=== PATIENT | female | born 1980 | race Caucasian/White ===

== ENCOUNTER 2021-01-20 06:57 | Outpatient (CLI) | payer OTHER, SELFPAY ==
--- NOTE | ~2021-01-20 | XR_ITS ---
EXAMINATION: XR thoracic spine 3V DATE: 01/20/2021 07:35 INDICATION: Dorsalgia, unspecified. TECHNIQUE: 3 views of thoracic spine were obtained. COMPARISON: None. FINDINGS: There is 7 degrees levocurvature of thoracic spine. Vertebral body heights and intervertebr al disc heights are normal. There are endplate osteophytes at most levels. IMPRESSION: 1. Mild thoracic spondylosis. Reviewed, dictated and finalized at location A.
--- NOTE | ~2021-01-20 | XR_ITS ---
EXAMINATION: XR shoulder LT min 2V DATE: 01/20/2021 07:35 INDICATION: Left shoulder pain. TECHNIQUE: 4 views of left shoulder were obtained. COMPARISON: None. FINDINGS: Bone alignment is normal. No fracture. Joint spaces are well maintained. IMPRESSION: 1. Normal left shoulder. Reviewed, dictated and finalized at location A. IMPRESSION: 1. Normal left shoulder.
--- NOTE | ~2021-01-20 | XR_ITS ---
EXAMINATION: XR lumbar spine 2-3V DATE: 01/20/2021 07:35 INDICATION: Dorsalgia, unspecified. TECHNIQUE: 3 views of lumbar spine were obtained. COMPARISON: None. FINDINGS: There is 3 degrees dextrocurvature of lumbar spine. Vertebral body heights and intervertebr al disc heights are normal. There are endplate osteophytes at multiple levels. The facet joints are u nremarkable. IMPRESSION: 1. Mild lumbar spondylosis. Reviewed, dictated and finalized at location A. IMPRESSION: 1. Mild lumbar spondylosis.
== END 2021-01-20 06:58 | disposition home or self-care (01) ==
PROVIDERS: PCP Family Medicine; Visit Provider Nurse Practitioner Family
DX: M25.512 Pain in left shoulder (principal); M47.896 Other spondylosis, lumbar region; M47.894 Other spondylosis, thoracic region
CPT/HCPCS: 72072; 72100; 73030

== ENCOUNTER 2022-02-06 15:12 | Emergency (ER) | payer BC, SELFPAY ==
[2022-02-06 15:23] VITALS: BP 179/100; PULSE 114; RESP 20; TEMP 36.6; O2SAT 98
[2022-02-06 15:53] LABS: Appearance Urine Clear (Clear); Bilirubin Urine 1+ (Negative); Blood Urine Negative (Negative); Color Urine Amber (Yellow); Glucose Urine UA Negative (Negative); Ketones Urine Trace mg/dL (Negative); Leukocyte Esterase Ur Negative LEU/UL (Negative); Nitrate Urine Negative (Negative); Protein Urine 1+ mg/dL (Negative); Specific Grav Ur >= 1.030 (1.001-1.035); Urobilinogen Urine 0.2 mg/dL (<2.0); pH Urine 5.5 (5.0-9.0)
[2022-02-06 15:54] LABS: Add Urine Microscopic? YES; Hyaline Casts Urine 15-19 /lpf; Mucus Urine Heavy /lpf; Squamous Epithelial Cell Urine Many /hpf (Few); Uric Acid Crystals Urine Present /hpf
[2022-02-06 17:17] VITALS: BP 142/88; PULSE 82; RESP 16; TEMP 37; O2SAT 100
--- NOTE | 2022-02-06 18:08 | ED.GENADULT ---
HPI - General Adult General Chief complaint: Urogenital-Female Stated complaint: herpes outbreak, right back pain Time Seen by Provider: 02/06/22 17:15 Source: patient Mode of arrival: ambulatory Limitations: no limitations History of Present Illness HPI narrative: Patient is a 41-year-old female who presents the ED with report of right mid back pain. Patient reports the pain has been present for months and months. She did attempt to see her primary care doctor about this pain but had a bad experience and has not returned. She states the pain radiates around her right lateral ribs under her right breast. She has tried taking Tylenol for this but denies any relief of the pain. She is on Eliquis due to history of bilateral PEs in 2018 and therefore not able to take anti-inflammatories. Patient states this pain does not feel similar to her previous PEs, but she did not experience chest pain or shortness of breath at that time either. Denies any direct injury or fall. She states the pain is significantly worse with movement and applying pressure on that side. She notes she has to sleep on her left side. She denies any difficulty breathing, pain with inspiration, or chest pain. Denies cough, recent cold symptoms, hemoptysis, BLE pain or edema. Denies urinary symptoms. She does note she is currently having an outbreak of her known HSV and would like valacyclovir. Patient has not been having any fever, chills, nausea, vomiting, abdominal pain. Related Data Home Medications Medication Instructions Recorded Confirmed amlodipine 5 mg tablet 5 mg PO DAILY 01/17/21 01/20/21 apixaban 5 mg tablet 5 mg PO BID 01/17/21 01/20/21 clonazepam 1 mg tablet 1 mg PO DAILY 01/17/21 01/20/21 lisdexamfetamine 70 mg capsule 70 mg PO DAILY 01/17/21 01/20/21 sertraline 100 mg tablet 100 mg PO DAILY 01/17/21 01/20/21 zolpidem 10 mg tablet 10 mg PO QHS PRN 01/17/21 01/20/21 Allergies Allergy/AdvReac Type Severity Reaction Status Date / Time No Known Allergies Allergy Mild Verified 01/17/21 09:14 Review of Systems Review of Systems: CONSTITUTIONAL: Denies fever, chills, or sweats. ENT: Denies rhinorrhea, congestion. CARDIOVASCULAR: Denies chest pain, palpitations, or BLE edema. RESPIRATORY: Denies cough, pain with inspiration, hemoptysis, dyspnea. GASTROINTESTINAL: Denies abdominal pain, nausea, vomiting, or diarrhea. GENITOURINARY: Denies dysuria or hematuria. SKIN: Reports HSV outbreak. MUSCULOSKELETAL: Reports R mid back pain, radiating around to R ribs. Denies BLE pain. NEUROLOGIC: Denies headache, numbness, or weakness. All systems reviewed & are unremarkable except as noted in HPI and below [facility] Past Medical History Medical History (Updated 02/07/22 @ 04:30 by Nahomy Marie PA-C) Anxiety Depression Morbid (severe) obesity due to excess calories Surgical History Surgical History (Updated 02/06/22 @ 18:11 by Nahomy Marie PA-C) No pertinent past surgical history Family History Family History (Updated 01/17/21 @ 09:18 by Dayan Dutton, [facility]) Father Hypertension Cerebrovascular accident Family history of diabetes mellitus in first degree relative Depression Mother Hypertension Depression Heart disease Grandparent Family history of malignant neoplasm Family history of pancreatic cancer Acute myocardial infarction Sibling Depression Social History Social History Smoking status: Never smoker Alcohol intake: current Substance use: current Substance use type: marijuana Additional occupation/education comments: mortgage Exam Narrative: GENERAL: Well appearing, morbidly obese, non-toxic, in no acute distress. HEAD: Normocephalic, atraumatic. NECK: Supple. No adenopathy, no masses. RESPIRATORY: Airway patent, respirations nonlabored. Clear to auscultation bilaterally, no rales, rhonchi, wheezing. CARDIOVASCULAR: Regular rate a
[2022-02-06 18:25] LABS: Basophils Percent Auto 0.8 % (0.2-1.2); Eosinophils Absolute Auto 0.2 K/mm3 (0-0.3); Eosinophils Percent Auto 3.2 % (0-4.4); Hematocrit 43.9 % (37.0-47.0); Hemoglobin 14.9 g/dL (12.0-15.0); Immature Granulocyte Absolute 0.01 K/mm3 (0.00-0.031); Immature Granulocyte Percent A 0.2 % (0-0.5); Lymphocytes Absolute Auto 1.32 K/mm3 (0.9-3.2); Lymphocytes Percent Auto 26.4 % (18.3-44.2); Mean Corpuscular HGB Conc 33.9 g/dl (32-36); Mean Corpuscular Volume 85.4 fl (80-100); Mean Platelet Volume 8.9 fl (7.4-10.4); Monocytes Absolute Auto 0.3 K/mm3 (0.1-0.6); Monocytes Percent Auto 6.8 % (2.6-8.5); Neutrophils Absolute Auto 3.1 K/mm3 (1.3-6.7); Neutrophils Percent Auto 62.6 % (45.5-73.1); Platelet Count Result 207 k/mm3 (150-375); Red Blood Count 5.14 M/mm3 (4.2-5.4); Red Cell Distribution Width 13.2 % (11.5-14.5)
[2022-02-06 18:37] LABS: Alanine Aminotransferase 58 U/L (6-35); Albumin Level 4.7 g/dL (3.5-5.1); Alkaline Phosphatase 74 U/L (38-126); Anion Gap 8 mmol/L (8-16); Aspartate Amino Transferase 55 U/L (14-36); Bilirubin,Total 0.8 mg/dL (0.2-1.3); Blood Urea Nitrogen 18 mg/dL (7-17); Calcium 8.9 mg/dL (8.4-10.2); Carbon Dioxide 25 mmol/L (22-30); Chloride 106 mmol/L (98-107); Estimated CRCL calculation 127 ml/min; Estimated Glomerular Filt Rate > 60; Glucose 103 mg/dL (65-110); Potassium 3.4 mmol/L (3.4-5.0); Sodium 139 mmol/L (137-145)
[2022-02-06 22:04] LABS: D Dimer < 0.27 ug/mL (<0.48)
[2022-02-06 22:25] VITALS: BP 138/80; PULSE 88; RESP 18; TEMP 37.1; O2SAT 98
== END 2022-02-06 22:27 | disposition home or self-care (01) ==
PROVIDERS: Emergency Medicine; Physician Assistant; Emergency Provider Emergency Medicine
DX: M54.9 Dorsalgia, unspecified (principal); B00.9 Herpesviral infection, unspecified; R74.01 Elevation of levels of liver transaminase levels
CPT/HCPCS: 36415; 80053; 81001; 81025; 85025; 85380; 87086; 99283

== ENCOUNTER 2023-09-09 15:50 | Emergency (ER) | payer OTHER, SELFPAY ==
--- NOTE | ~2023-09-09 | XR_ITS ---
EXAMINATION: XR chest 2V DATE: 09/09/2023 16:05 INDICATION: Dyspnea and pain with inspiration TECHNIQUE: PA and lateral views of the chest were obtained. COMPARISON: Chest radiograph dated 12/26/2004 FINDINGS: The lungs are clear with no focal airspace opacities, pulmonary edema, pleural effusion or pneumothor ax. The cardiomediastinal silhouette is normal. Mild thoracic spondylosis. IMPRESSION: 1. No acute cardiopulmonary disease. Reviewed, dictated and finalized at location A. CAR RENOVATOR
--- NOTE | ~2023-09-09 | CT_ITS ---
EXAMINATION: CTA chest PE abdomen pel DATE: 09/09/2023 19:13 SUPERVISOR IN CIRCUIT TESTING INDICATION: Left rib and chest pain. Pleuritic pain. History of PE. Left upper abdomen pain. TECHNIQUE: Computed tomographic angiography (CTA) of the chest, abdomen, and pelvis was performed wit hout and with 100 mL Omnipaque-[address] angiography chest performed due to poor contrast opacification the pulmonary arteries. The dose-length product was 3053.62 mGy-cm. Maxi mum intensity projection 3D-reconstructions of the aorta and other arteries were constructed by the t echnologist on a separate workstation. Automated exposure control and iterative reconstruction techni que were employed. COMPARISON: CT abdomen dated 01/17/2006. FINDINGS: CHEST CTA: Study is nondiagnostic for pulmonary embolism. Heart size normal. No significant pleural or pericardi al effusion. No evidence for aortic aneurysm or dissection. No thoracic lymphadenopathy. No endobronc hial lesions. No pneumothorax. No acute osseous abnormality. Mild thoracic spondylosis. ABDOMEN AND PELVIS CTA: Fatty infiltration of the liver. The spleen, pancreas, adrenal glands and kidneys are unremarkable. N onobstructive bowel gas pattern. No significant vascular abnormality. No lymphadenopathy. No free air or free fluid. IMPRESSION: 1. No acute cardiopulmonary disease. Study nondiagnostic for evaluation of pulmonary embolism despite repeat attempt at contrast administration. 2: No acute abnormality of the abdomen or pelvis. Reviewed, dictated and finalized at location A. RVISOR IN CIRCUIT TESTING IMPRESSION: 1. No acute cardiopulmonary disease. Study nondiagnostic for evaluation of pulm onary embolism despite repeat attempt at contrast administration. 2: No acute abnormality of the abdomen or pelvis.
[2023-09-09 15:52] VITALS: BP 201/98; PULSE 116; RESP 20; TEMP 35.7; O2SAT 97
--- NOTE | 2023-09-09 15:55 | ECG_ITS ---
Measurements Intervals [place] Rate: 105 P: 25 VA: 152 QRS: -18 QRSD: 80 T: 18 QT: 309 QTc: 410 Interpretive Statements SINUS TACHYCARDIA LOW QRS VOLTAGE IN PRECORDIAL LEADS [QRS DEFLECTION < 1.0 mV IN CHEST LEADS] POSSIBLE ANTERIOR MYOCARDIAL INFARCTION , PROBABLY OLD [30 ms Q WAVE IN V3/V4, OR R < 0.2 mV IN V4] ABNORMAL ECG NO PREVIOUS ECG AVAILABLE FOR COMPARISON Electronically Signed On 09-09-2023 17:30:32 [employer]ER by Johnny Sanchez M.D.
--- NOTE | 2023-09-09 16:27 | ED.GENADULT ---
HPI - General Adult General Chief complaint: Unspecified <Nahomy Lara PA-C - Last Filed: 09/09/23 16:32> Stated complaint: left rib/back pain <Nahomy Lara PA-C - Last Filed: 09/09/23 16:32> Time Seen by Provider: 09/09/23 21:59 <MONICO Dean Last Filed: 09/09/23 16:32> Source: patient <MONICO Dean Last Filed: 09/09/23 16:32> Mode of arrival: ambulatory <MONICO Dean Last Filed: 09/09/23 16:32> Limitations: no limitations <MONICO Dean Last Filed: 09/09/23 16:32> History of Present Illness HPI narrative: Patient is a 43-year-old female who presents the ED with report of left rib/abdominal pain. Patient reports having intermittent pain over the last 1 week. She states pain became more severe and constant last night into today. Pain worse with deep breathing, coughing, laughing. Pain does radiate around to her left mid back. Denies radiation into the chest. Patient does report she has been feeling more short of breath than usual over the last few days. She does have history of PE and reports noncompliance with her Eliquis. Patient tried taking ibuprofen and antacids for her discomfort without improvement. Denies recent injury or trauma. Denies recent cough or cold symptoms. <MONICO Dean Last Filed: 09/09/23 16:32> Related Data Home medications: Home Medications Medication Instructions Recorded Confirmed amlodipine 5 mg tablet 5 mg PO DAILY 01/17/21 01/20/21 apixaban 5 mg tablet (Eliquis) 5 mg PO BID 01/17/21 01/20/21 clonazepam 1 mg tablet (Klonopin) 1 mg PO DAILY 01/17/21 01/20/21 lisdexamfetamine 70 mg capsule 70 mg PO DAILY 01/17/21 01/20/21 (Vyvanse) sertraline 100 mg tablet (Zoloft) 100 mg PO DAILY 01/17/21 01/20/21 zolpidem 10 mg tablet (Ambien) 10 mg PO QHS PRN 01/17/21 01/20/21 <Nahomy Lara PA-C - Last Filed: 09/09/23 16:32> Allergies/adverse reactions: Allergies Allergy/AdvReac Type Severity Reaction Status Date / Time No Known Allergies Allergy Mild Verified 01/17/21 09:14 <Nahomy Lara PA-C - Last Filed: 09/09/23 16:32> Review of Systems Review of Systems: CONSTITUTIONAL: Denies fever, chills, or sweats. ENT: Denies rhinorrhea, congestion, sore throat. CARDIOVASCULAR: Denies chest pain, palpitations, or edema. RESPIRATORY: See HPI. GASTROINTESTINAL: See HPI. GENITOURINARY: Denies dysuria or hematuria. MUSCULOSKELETAL: See HPI. <Nahomy Lara PA-C - Last Filed: 09/09/23 16:32> All systems reviewed & are unremarkable except as noted in HPI and below <Nahomy Lara PA-C - Last Filed: 09/09/23 16:32> [facility] Past Medical History Medical History: Medical History Anxiety Depression Morbid (severe) obesity due to excess calories Pulmonary embolism <Nahomy Lara PA-C - Last Filed: 09/09/23 16:32> Surgical History Surgical History: Surgical History No pertinent past surgical history <Nahomy Lara PA-C - Last Filed: 09/09/23 16:32> Family History Family History: Family History Father Hypertension Cerebrovascular accident Family history of diabetes mellitus in first degree relative Depression Mother Hypertension Depression Heart disease Grandparent Family history of malignant neoplasm Family history of pancreatic cancer Acute myocardial infarction Sibling Depression <Nahomy Lara PA-C - Last Filed: 09/09/23 16:32> Social History Social History: Social History Smoking status: Never smoker Alcohol intake: current Substance use: current Substance use type: marijuana Ronna
[2023-09-09 16:39] LABS: Basophils Percent Auto 0.6 % (0.2-1.2); Eosinophils Absolute Auto 0.2 K/mm3 (0-0.3); Eosinophils Percent Auto 3.4 % (0-4.4); Hematocrit 42.2 % (37.0-47.0); Hemoglobin 13.9 g/dL (12.0-15.0); Immature Granulocyte Absolute 0.01 K/mm3 (0.00-0.031); Immature Granulocyte Percent A 0.2 % (0-0.5); Lymphocytes Absolute Auto 1.79 K/mm3 (0.9-3.2); Lymphocytes Percent Auto 35.5 % (18.3-44.2); Mean Corpuscular HGB Conc 32.9 g/dl (32-36); Mean Corpuscular Hemoglobin 28.7 pg (26-34); Mean Corpuscular Volume 87.2 fl (80-100); Mean Platelet Volume 9.1 fl (7.4-10.4); Monocytes Absolute Auto 0.3 K/mm3 (0.1-0.6); Monocytes Percent Auto 6.3 % (2.6-8.5); Neutrophils Absolute Auto 2.7 K/mm3 (1.3-6.7); Platelet Count Result 205 k/mm3 (150-375); Red Blood Count 4.84 M/mm3 (4.2-5.4)
[2023-09-09 16:44] LABS: Alanine Aminotransferase 44 U/L (6-35); Albumin Level 4.2 g/dL (3.5-5.1); Alkaline Phosphatase 70 U/L (38-126); Anion Gap 10 mmol/L (8-16); Aspartate Amino Transferase 32 U/L (14-36); Bilirubin,Total 0.4 mg/dL (0.2-1.3); Blood Urea Nitrogen 19 mg/dL (7-17); Calcium 9.5 mg/dL (8.4-10.2); Carbon Dioxide 20 mmol/L (22-30); Chloride 109 mmol/L (98-107); Estimated CRCL calculation 193 ml/min; Estimated Glomerular Filt Rate > 60; Glucose 97 mg/dL (65-110); Potassium 4.1 mmol/L (3.4-5.0); Sodium 139 mmol/L (137-145)
[2023-09-09 17:11] LABS: NT Pro B Type Natriuretic Pept 106 pg/mL (19.9-100); Troponin I < 0.012 ng/mL (0.000-0.034)
[2023-09-09 18:29] VITALS: BP 170/103; PULSE 81; RESP 14; TEMP 36.6; O2SAT 99
[2023-09-09 22:08] VITALS: BP 152/98; O2SAT 99
[2023-09-09 22:09] VITALS: O2SAT 100
[2023-09-09 22:15] VITALS: O2SAT 98
[2023-09-09 22:16] VITALS: BP 157/96; PULSE 83; RESP 16; O2SAT 99
== END 2023-09-09 23:06 | disposition home or self-care (01) ==
PROVIDERS: Emergency Medicine; Physician Assistant; Emergency Provider Emergency Medicine
DX: R10.12 Left upper quadrant pain (principal); Z86.711 Personal history of pulmonary embolism; E66.01 Morbid (severe) obesity due to excess calories; Z68.45 Body mass index [BMI] 70 or greater, adult
CPT/HCPCS: 36415; 71046; 71275; 74177; 80053; 83880; 84484; 85025; 93005; 99284; Q9967

== ENCOUNTER 2024-03-18 08:29 | Emergency (ER) | payer OTHER, SELFPAY ==
--- NOTE | ~2024-03-18 | XR_ITS ---
EXAMINATION: XR ankle LT min 3V DATE: 03/18/2024 08:52 INDICATION: Twisting left ankle injury one day prior. TECHNIQUE: Anteroposterior, oblique, mortise, and lateral views of the left ankle were obtained. COMPARISON: None. FINDINGS: Bone alignment is normal. No acute fracture. Small corticated heterotopic ossicles near the tips of t he medial and lateral malleoli consistent with sequela of chronic medial and lateral ankle sprains. A dditional corticated ossicles and more likely representing degenerative loose osteochondral bodies th e anterior recess of the ankle joint and dorsal aspect of the talonavicular joint. Mild osteoarthriti s at the talonavicular and a few of the tarsal metatarsal joints. Diffuse soft tissue swelling with m ild subarticular edema about the anterior, medial and lateral aspects of the ankle. IMPRESSION: 1. Stigmata of chronic medial and lateral ankle sprains. No acute osseous abnormality. 2. 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 Reviewed, dictated and finalized at location B. IMPRESSION: 1. Stigmata of chronic medial and lateral ankle sprains. No acute osseous abnor mality. 2. 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
[2024-03-18 08:40] VITALS: BP 154/110; PULSE 93; RESP 20; TEMP 37.1; O2SAT 98
--- NOTE | 2024-03-18 08:59 | ED.LOWEXIN ---
HPI - Extremity Injury (Lower) General Chief Complaint: Extremity Injury, Lower Stated Complaint: Left Ankle Injury Time Seen by Provider: 03/18/24 08:45 Source: patient and RN notes reviewed Mode of arrival: ambulatory Limitations: no limitations History of Present Illness HPI Narrative: Patient presents today complaining of left ankle pain. Yesterday she tripped on a sidewalk, twisting her ankle and fell. Denies injury to any other part of her body. Denies numbness or tingling. Currently rates her pain 6/10. She has elevated and iced her ankle and taken some ibuprofen with relief. Pain increases with movement. Related Data Home Medications Medication Instructions Recorded Confirmed apixaban 5 mg tablet (Eliquis) 5 mg PO BID 01/17/21 03/18/24 Allergies Allergy/AdvReac Type Severity Reaction Status Date / Time No Known Allergies Allergy Mild Verified 03/18/24 08:34 Review of Systems Review of Systems: CONSTITUTIONAL: Denies body aches, fever, chills, or sweats. EYES: Denies visual changes, redness, or discharge. ENT: Denies rhinorrhea, congestion, sore throat, or otalgia. CARDIOVASCULAR: Denies chest pain, palpitations, or edema. RESPIRATORY: Denies cough or dyspnea. GASTROINTESTINAL: Denies abdominal pain, nausea, vomiting, or diarrhea. GENITOURINARY: Denies dysuria or hematuria. SKIN: Denies rash, itching, or wounds. MUSCULOSKELETAL: Denies back pain, or myalgia.+ left ankle pain NEUROLOGIC: Denies headache, numbness, tingling, or weakness. PSYCH: Denies depression or anxiety. [facility] Past Medical History Medical History ADHD Anxiety Depression Morbid (severe) obesity due to excess calories Pulmonary embolism Surgical History Surgical History No pertinent past surgical history Family History Family History Father Hypertension Cerebrovascular accident Family history of diabetes mellitus in first degree relative Depression Mother Hypertension Depression Heart disease Grandparent Family history of malignant neoplasm Family history of pancreatic cancer Acute myocardial infarction Sibling Depression Social History Social History Smoking status: Never smoker Alcohol intake: current Substance use: current Substance use type: marijuana Lack of Transportation: No Lack of Food: Sometimes True Current Housing: I Have Housing Concerned About Future Housing: No Difficulty Paying Gas/Electric Bills: No Difficulty Paying for Meds: No Currently Unemployed: No Education: Associate Degree Difficulty w/ Childcare or Family Care: No Living arrangements: alone Occupation/Education: occupation Additional occupation/education comments: mortgage Gender identity (if verbalized by the patient): Female Agree to blood products: Yes Comments At time of signature, I have reviewed and agree with nursing past medical, surgical, social and family history unless otherwise noted. Please see nursing chart for further information. There is no relevant family history pertinent to the presenting complaint Exam Narrative: GENERAL: Well-appearing, well-nourished, and in no acute distress. HEAD: Normocephalic, atraumatic. EYES: EOMI. No redness or drainage. Conjunctivae normal. ENT: Mucous membranes pink and moist. NECK: Normal AROM. CHEST: No respiratory distress. EXTREMITIES: Left ankle: Tenderness and moderate edema to the lateral ankle. No tenderness or edema medially or anteriorly. Distal sensation intact. Capillary refill. Pedal pulse normal. Full range of motion of the toes. Full P ROM of the ankle with increased pain in all directions. SKIN: Warm, dry, no rash. Capillary refill normal. No
== END 2024-03-18 09:18 | disposition home or self-care (01) ==
PROVIDERS: Emergency Provider Nurse Practitioner; PCP Nurse Practitioner Adult Health
DX: S93.402A Sprain of unspecified ligament of left ankle, initial encounter (principal); W01.0XXA Fall on same level from slipping, tripping and stumbling without subsequent striking against object, initial encounter; E66.01 Morbid (severe) obesity due to excess calories; Z68.45 Body mass index [BMI] 70 or greater, adult; Z86.711 Personal history of pulmonary embolism; Z79.01 Long term (current) use of anticoagulants
CPT/HCPCS: 73610; 99213; G0463

== ENCOUNTER 2024-07-13 07:38 | Outpatient (CLI) | payer OTHER, SELFPAY ==
--- NOTE | ~2024-07-13 | MM_ITS ---
EXAMINATION: MM screening david BI w constantine HISTORY: Screening TECHNIQUE: Craniocaudal and mediolateral oblique 3-D tomosynthesis images were obtained and synthetic 2-D images were generated. CAD analysis was submitted and interpreted. COMPARISON: No prior studies for comparison. BREAST PARENCHYMAL COMPOSITION: Not Dense: The breasts are almost entirely fatty. FINDINGS: There is no evidence of suspicious mass, calcification, or architectural distortion to sugg est malignancy in either breast. There has been no suspicious interval change. IMPRESSION: 1. No mammographic evidence of malignancy. 2. Recommend routine screening mammography in one year. BI-RADS Category 1: Negative Reviewed, dictated and finalized at location B.
== END 2024-07-13 07:39 | disposition home or self-care (01) ==
LOC: ANHIMG 07:40
PROVIDERS: PCP Nurse Practitioner Adult Health; Visit Provider Nurse Practitioner Adult Health
DX: Z12.31 Encounter for screening mammogram for malignant neoplasm of breast (principal)
CPT/HCPCS: 77063; 77067

== ENCOUNTER 2025-02-16 09:39 | Outpatient (CLI) | payer OTHER, SELFPAY ==
--- NOTE | ~2025-02-16 | CT_ITS ---
Non-contrast CT scan of the Abdomen and Pelvis Clinical indication: Abdominal pain Technique: 2.5 mm axial scans were obtained through the abdomen and pelvis without intravenous or or al contrast. Dose reduction technique was used on this scan by utilizing automated exposure control a nd iterative reconstruction technique. The dose-length product (DLP) was 1196.57 mGy-cm. COMPARISON: 09/09/2023 Findings: Images through the lung bases reveal no abnormalities. There is no evidence of renal or ureteral calculi. The kidneys and the ureters are nondilated. The liver, spleen, pancreas, gallbladder, and adrenals appear normal. There is no aortic aneurysm. There is no evidence of bowel obstruction. Images through the pelvis were performed. There is no evidence of ascites or lymphadenopathy. Urinary bladder unremarkable. No pelvic mass seen. No ascites. Impression: No significant abnormality seen. Reviewed, dictated and finalized at [facility]. Impression: No significant abnormality seen.
== END 2025-02-16 09:40 | disposition home or self-care (01) ==
LOC: MICIMG 09:41
PROVIDERS: PCP Nurse Practitioner Adult Health; Visit Provider Nurse Practitioner Adult Health
DX: R10.9 Unspecified abdominal pain (principal); Z80.51 Family history of malignant neoplasm of kidney
CPT/HCPCS: 74176

== ENCOUNTER 2025-06-22 23:21 | Emergency (ER) | payer OTHER, SELFPAY ==
--- OUTSIDE RECORDS SUMMARY | 2000-06-14 05:00 | XMS_ITS | Continuity of Care Document ---
Author Organization [facility] Address [address] [place] [address] Phone Care Team Providers Care Quality Analyst/Technical Writer Name Role Phone Salinas Solo DO Unavailable Unavailable Advance Directives Directive Yes / No Effective Date File Name No Information Encounters Encounter Description Practice Location Reason(s) For Visit Diagnoses Date Provider Providers Copied on Encounter [facility], [address], [place], [place], [id number], tel:[phone] [facility] No Information Germania Cruz. [address] [place], [address], [place]. tel: [phone] Family History Family Member Type Diagnosis Age At Onset No Information Payers Payer name Insurance type Covered democrat ID Authoriza tion(s) No Information Social History Type Description Quantity Date Captured Comments Sex Female Smoking Status No Information Chief Complaint And Reason For Visit No Information Reason For Referral Reason For Referral No Information History Of Present Illness Encounter Date Complaint History Of Prese nt Illness No Information Functional Status Date Functional Assessmen t No Information Instructions Date Instruction Additional Infor mation No Information Assessments Type Assessment Date No Information Patient Care Teams Name Effective Dates (start - stop) Status Members No Information
--- OUTSIDE RECORDS SUMMARY | 2016-06-13 03:05 | XMS_ITS | Continuity of Care Document ---
Author Organization [facility] Address [address] [place] [address] [address] [place] [address] Phone Care Team Providers Care Director Of Group Sales Name Role Phone Eleazar Campbell MD Unavailable Unavailable Allergies, Adverse Reactions, Alerts Substance Reaction Status Criticality TRAZODONE HCL Active No Information Medications Medication Instructions Dosage Effective Dates (start - stop) Status Comments Vyvanse 10 mg capsule - Active Ambien 5 mg tablet take 2 tablet by ora l route every day at bedtime 10 MG - Active hydrocodone-acetamino phen BUCCAL ADH. PATCH - Active Plaquenil 200 mg tablet take 1 tablet by oral route every day 200 MG - Active prednisone BUCCAL ADH. PATCH - Active tramadol ER 300 mg capsule 24 hr,extended release take 1 capsule by oral route every day 300 MG - Active Zoloft 20 mg/mL oral concentrate take 2.5 milliliter by oral route every day and mix with 4 oz. (1/2 cup) of water, martha eric, lemon/[place] soda, lemonade or orange juice ONLY 50 MG - Active Procedures Procedure Date OFFICE/OUTPATIENT VISIT, [facility] VISUAL FIELD EXAMINATION(S) REFRACTION Advance Directives Directive Yes / No Effective Date File Name No Information Encounters Encounter Description Practice Location Reason(s) For Visit Diagnoses Date Provider Providers Copied on Encounter OFFICE/OUTPA TIENT VISIT, [facility], [address] [place] [address] [address], [place], [place], [id number], [place] tel:[phone] [facility] High risk medication monitoring. (chief complaint)K eratoconus (chief complaint) Other fdc (current) drug therapyKerato conus of both eyes Sep- 1-201 6 Shannan Eleazar. [address] [facility], [address], [place], [place], [address], [place]. tel:[phone] Referring Provider: Eleazar Campbell Lili, [address] [facility] [address], [place], [address]. tel:[phone] Family History Family Member Type Diagnosis Age At Onset No Information Payers Payer name Insurance type Covered republican ID Meeta RUVALCABA (s) [id number] Social History Type Description Quantity Date Captured Comments Alcohol Use Details Moderate Caffeine Use Details Unknown Tobacco Use Status No Information Smoking Status Never smoker Non-Smoking Tobacco Use Details : No Details Available : No Details Available Sex Female Chief Complaint And Reason For Visit From encounter dated '06/13/2016 08:05'. High risk medication monitoring. (chief complaint). Description: The 35 year old female presents for evaluation of High risk medication monitoring. in the right eye and left eye. It started about 1 year(s) ago. It affects Unsure. The symptom is constant. The condition is stable. Pt states that she has not yet started Plaquenil but was told by Dr. Nely Dunn she needed testing done for Plaquenil. VF 10-2 & color plates ordered and done today. Keratoconus (chief complaint). Description: The patient is present for evaluation of Keratoconus inthe left eye. It started about 1 year(s) ago. It affects both near and far vision. The symptom is constant. The condition is mild. Pt C/O fluctuating VA. Last EE 1 year ago, pt would like to get updated gls rx today. ABN signed. Reason For Referral Reason For Referral No Information History Of Present Illness Encounter Date Complaint History Of Prese nt Illness High risk medication monitoring. The 35 year old female presents for evaluation of High risk medication monitoring. in the right eye and left eye. It started about 1 year(s) ago. It affects Unsure. The symptom is constant. The condition is stable. Pt states that she has not yet started Plaquenil but was told by Dr. Nely Dunn she needed testing done for Plaquenil. VF 10-2 & color plates ordered and done today. Keratoconus The patient is p resent for evaluation of Keratoconus in the left eye. It started about 1 year(s) ago. It affects both near and far vision. The symptom is constant. The condition is mild. Pt C/O fluctuating VA. Last EE 1 year ago, pt would like to get updated gls rx today. ABN signed. Functional Status Date Functional Assessmen t No Information Instructions Date Instruction Additional Infor mation Impression/Plan - Pl aquenil. No toxicity was seen today. VF was ordered today normal OU. will continue to observe. Related to Other fdc (current) drug therapy Impression/Plan - Di scussed diagnosis in detail with patient. Discussed treatment options with patient. Will continue to observe condition and or symptoms. Patient has tried hard contacts in the past bud did not like it. Related to Keratoconus of both eyes Follow up - RTO 1 year for comp exam Assessments Type Assessment Date assessment Other meal grinder tender (current) drug t herapy impression Other meal grinder tender (current) drug t herapy: Z79.899. impression Keratoconus of both eyes: H18.60 3. OU. assessment Keratoconus of both eyes 2015 Patient Care Teams Name Effective Dates (start - stop) Status Members No Information
[2025-06-22 23:24] VITALS: BP 150/73; PULSE 88; RESP 20; TEMP 36.7; O2SAT 98
--- NOTE | 2025-06-23 00:52 | ED.DENTAL ---
HPI - Dental/Oral General Chief complaint: Dental/Oral Stated complaint: dental pain Time Seen by Provider: 06/23/25 00:47 Source: patient Mode of arrival: ambulatory Limitations: no limitations History of Present Illness HPI Narrative: Patient presents to the emergency department for dental pain. Reports she was seen by her dentist this morning. Told she has several teeth that need to be pulled. Reports worsening pain tonight which prompted her to be seen. Denies fevers. MD Complaint: tooth pain Location: Tooth # (13) Related Data Allergies Allergy/AdvReac Type Severity Reaction Status Date / Time No Known Allergies Allergy Mild Verified 06/22/25 23:27 Review of Systems Review of Systems: All systems reviewed & are unremarkable except as noted in HPI and below PMFSH Past Medical History Medical History ADHD Anxiety Depression Morbid (severe) obesity due to excess calories Pulmonary embolism Surgical History Surgical History No pertinent past surgical history Family History Family History Father Hypertension Cerebrovascular accident Family history of diabetes mellitus in first degree relative Depression Mother Hypertension Depression Heart disease Grandparent Family history of malignant neoplasm Family history of pancreatic cancer Acute myocardial infarction Sibling Depression Social History Social History Smoking status: Never smoker Alcohol intake: current Substance use: current Substance use type: marijuana Lack of Transportation: No Lack of Food: Sometimes True Current Housing: I Have Housing Concerned About Future Housing: No Difficulty Paying Gas/Electric Bills: No Difficulty Paying for Meds: No Currently Unemployed: No Education: Associate Degree Difficulty w/ Childcare or Family Care: No Living arrangements: alone Occupation/Education: occupation Additional occupation/education comments: mortgage Gender identity (if verbalized by the patient): Female Agree to blood products: Yes Exam Narrative: GENERAL: Well-appearing, well-nourished, and in no acute distress. HEAD: Normocephalic, atraumatic. EYES: EOMI. ENT: Nares clear, no rhinorrhea or epistaxis. Mucous membranes moist. Oropharynx without tonsillar hypertrophy exudate or other lesions. Tooth #13 tender to palpation without surrounding edema/fluctuance to suggest abscess NECK: Supple. No adenopathy or masses. CHEST: No respiratory distress. HEART: Regular rate EXTREMITIES: Normal range of motion. No edema. SKIN: Warm, dry, no rash. NEURO: No focal deficits. Alert and oriented x3. PSYCH: Normal mood and affect Course Vital Signs Vital signs: Vital Signs Temperature 98.0 F 06/22/25 23:24 Pulse Rate 88 06/22/25 23:24 Respiratory Rate 06/22/25 23:24 Blood Pressure 150/73 H 06/22/25 23:24 Pulse Oximetry 98 06/22/25 23:24 Oxygen Delivery Room Air 06/22/25 23:24 Temperature 98.0 F 06/22/25 23:24 Pulse Rate 88 06/22/25 23:24 Respiratory Rate 06/22/25 23:24 Blood Pressure 150/73 H 06/22/25 23:24 Pulse Oximetry 98 06/22/25 23:24 Oxygen Delivery Room Air 06/22/25 23:24 MDM - Dental/Oral MDM Narrative Medical decision making narrative: Patient presents the emergency department for toothache. She is afebrile and nontoxic appearing. No evidence for abscess on exam. Patient will be started on oral antibiotics, instructed to have continued follow-up with her dentist. She was given warnings to return to the ER Differential Diagnosis Differential diagnosis: Likely dental caries, toothache and dental abscess Critical Care Time Critical Care Time Critical Care Time: No Discharge Plan Discharge Clinical Impression: Toothache Patient Disposition: Home Condition: Stable Instructions: Antibiotic Form, Toothache (ED) Additional Instructions: Return to the Emergency Department if you experience fever >101, increasing swelling and redness of your tooth, or any other symptoms that are concerning to you Take antibiotic as prescribed. Tylenol as needed for pain. Prescribed pain medication as needed Follow up with your dentist Patient Language: Jamaican Prescriptions: New amoxicillin-pot clavulanate 875-125 mg tablet 1 tablet PO Q12H 7 Days Qty: 14 0RF hydrocodone-acetaminophen 5-325 mg tablet 1 tablet PO Q6H PRN (Reason: pain) Qty: 10 0RF No Action Zepbound 12.5 mg/0.5 mL pen injector 12.5 mg subcut WEEKLY Qty: 2 1RF lisdexamfetamine [Vyvanse] 50 mg capsule 50 mg PO DAILY Qty: 30 0RF mecobalamin (vitamin B12) 1,000 mcg tablet,disintegrating 1,000 mcg sublingual DAILY Qty: 90 1RF Rx Instructions: place tablet under tongue and allow to dissolve for at least30 secs before swallowing ondansetron 8 mg tablet,disintegrating 8 mg PO Q12H PRN (Reason: nausea and vomiting) Qty: 30 0RF sertraline [Zoloft] 100 mg tablet 100 mg PO BID Qty: 180 3RF folic acid 1 mg tablet See Rx Instructions .ROUTE .COMPLEX Qty: 30 5RF Dose Instruction: 1 MG ORALLY DAILY Rx Instructions: 1 MG ORALLY DAILY pravastatin 20 mg tablet 20 mg PO QHS Qty: 90 1RF Eliquis 2.5 mg tablet 2.5 mg PO BID Qty: 180 3RF lisinopril-hydrochlorothiazide 20-25 mg tablet See Rx Instructions .ROUTE .COMPLEX Qty: 90 3RF Dose Instruction: TAKE 1 TABLET BY MOUTH EVERY DAY Rx Instructions: TAKE 1 TABLET BY MOUTH EVERY DAY valacyclovir 1 gram tablet 1,000 mg PO DAILY 5 Days Qty: 5 0RF alprazolam 1 mg tablet 1 mg PO BID PRN (Reason: anxiety) Qty: 60 1RF zolpidem 10 mg tablet 10 mg PO QHS PRN (Reason: insomnia) Qty: 90 0RF cholecalciferol (vitamin D3) 1,250 mcg (50,000 unit) capsule See Rx Instructions .ROUTE .COMPLEX Qty: 12 1RF Dose Instruction: TAKE 1 CAPSULE BY MOUTH WEEKY Rx Instructions: TAKE 1 CAPSULE BY MOUTH WEEKY Follow-up/Referrals: Joanne Zhou APRN [Primary Care Provider, Family Practice]
--- OUTSIDE RECORDS SUMMARY | 2025-06-23 02:16 | XMS_ITS | Clinical Summary ---
Author Organization [facility] Address [address] [place] [address] Care Team Providers Care Car Shakeout Operator Name Role Phone No, Physician Unavailable Sourav Sanchez MD Unavailable [phone] No, Physician Primary Care Provider Daljit Ragland MD Unavailable Allergies Active Allergy Reactions Criticality Noted Date Comments Trazodone Palpitations Reaction: tachycardia, , , Trazodone Unknown 07/30/2018 Medications lisdexamfetamin e (VYVANSE) 70 mg capsule take 1 capsule by oral route every day in the morning 0 0 6 Active clonazePAM (KlonoPIN) 1 mg tablet take 1 tablet by ORAL route 2 times every day 0 0 6 Active zolpidem (AMBIEN) 10 mg tablet take 1 tablet by ORAL route every day at bedtime 0 0 6 Active dextroamphetami ne-amphetamine (ADDERALL) 20 mg tablet take 1 tablet by oral route every day 0 0 6 Active Additional Information Patient not taking.Reported on 10/08/[address] (CYMBALTA) 60 mg capsule take 1 capsule by oral route every day 0 0 6 Active Additional Information Patient not taking.Reported on 10/08/2018 sertraline (ZOLOFT) 50 mg tablet take 1 tablet by oral route every day 0 0 6 Active hydroxychloroqu ine (PLAQUENIL) 200 mg tablet Take 200 mg by mouth daily. Active valACYclovir (VALTREX) 500 mg tablet Take 500 mg by mouth 2 (two) times a day. Active ELIQUIS 2.5 mg tablet TAKE 1 TABLET BY MOUTH TWICE A DAY 180 tablet 3 9 Active Active Problems Problem Noted Date Diagnosed Date Morbid obesity with BMI of 60.0-69.9, adult 09/23 Left breast mass 10/07/2018 Pulmonary embolism, bilateral 08/19/2018 Pulmonary embolism, bilateral 08/18/2018 Herpes simplex type 2 infection 03/23/2016 Overview (12/27/2016): HSV-2 infection Secondary ovarian failure 03/23/2016 Overview (12/27/2016): Secondary ovarian failure Chronic depression 03/23/2016 Overview (12/27/2016): Chronic depression Chronic pulmonary thromboembolism 03/23/2016 Overview (12/27/2016): Chronic pulmonary thromboembolism Keratoconus 03/23/2016 Overview (12/27/2016): Keratoconus of both eyes BMI 60.0-69.9, adult 03/23/2016 Overview (12/27/2016): Morbid obesity due to excess calories Immunizations Immunization Administration Dates Next Due Influenza, Trivalent, IM (MDV) 06/23/2015 Surgical History Surgery Date Site/Laterality Comments OTHER SURGICAL HISTORY facial cellulitis and abscess: abx, I&D TONSILLECTOMY Tonsillectomy Medical History Medical History Date Comments Hx Other Medical facial cellulit is and abscess; Comments: MPF 03/23/2016 - Asthma Family History Medical History Relation Name Comments Gout Brother 1 Family history of gout - (Added by TW Conv) Hypertension Brother 2 Family history of hypertension - (Added by TW Conv) Diabetes Brother 3 Family history of diabetes mellitus - (Added by TW Conv) Arthritis Father Family history of arthritis - (Added by TW Conv) Gout Father Family history of gout - (Added by TW Conv) Heart disease Father Family history of cardiac disorder - (Added by TW Conv) Other Father DM, CHF, CVA, b lood disorders; Stroke Father Family history of cerebrovascular accident (CVA) - (Added by TW Conv) Hypertension Mother Family history of hypertension - (Added by TW Conv)/HTN; Osteoporosis Other 1 Family history of osteoporosis - Relation: Grandmother (Added by TW Conv) Arthritis Other 2 Family history of arthritis - Relation: Grandmother (Added by TW Conv) Cancer Paternal Grandfather Pancreatic cancer Paternal Grandmother Brain cancer Sister 1 Brain tumor - ( Added by TW Conv) Other Sister 2 blood disorder, brain and spine tumor; Other Sister 3 blood clot in e ye; Relation Name Status Comments Brother 1 Brother 2 Brother 3 Father Mother Other 1 Other 2 Paternal Grandfather Paternal Grandmother Sister 1 Sister 2 Sister 3 Social History Tobacco Use Types Packs/Day Years Used Date Smoking Tobacco: Never Smokeless Tobacco: Never Alcohol Use Standard Drinks/Week Comments Yes 14 (1 standard drink = 0.6 oz pu re alcohol) Comments No Sex and Gender Information Value Date Recorded Sex Assigned at Not on file Legal Sex Female 9:16 PM CIRCUIT JUDGE Gender Identity Not on file Sexual Orientation Not on file Obstetrics History Para Term AB IAB SAB Ectopic Multiple Livin g Live Births 0 0 0 0 0 0 0 0 0 0 0 Last Filed Vital Signs Vital Sign Reading Time Taken Comments Blood Pressure 149/108 10/08/2018 9:14 AM CIRCUIT JUDGE Pulse 112 10/08/2018 9:14 AM CIRCUIT JUDGE Temperature 37.3 C (99.2 F) 08/18/2018 2:27 PM CIRCUIT JUDGE Respiratory Rate - - Oxygen Saturation 93% 11/05/2017 3:28 PM CIRCUIT JUDGE Inhaled Oxygen Concentration - - Weight 172.4 kg (380 lb) 10/08/2018 9:14 AM CIRCUIT JUDGE Height 167.6 cm (5' 6) 10/08/2018 9:14 AM CIRCUIT JUDGE Body Mass Index 61.33 10/08/2018 9:14 AM CIRCUIT JUDGE Plan of Treatment Not on file Insurance [facility] Care Teams Car Shakeout Operator Relationship Specialty Start Date End Date No, Physician PCP - General 10/08/18 No, Physician 06/17/17 Sourav Sanchez MD [address] [address] Asic Engineer Obstetrics and Gynecology 10/08/18 Daljit Ragland MD [address] [address] Medical Oncologist/Patent Attorney Hematology 10/08/18
--- OUTSIDE RECORDS SUMMARY | 2025-06-23 02:16 | XMS_ITS | Clinical Summary ---
Author Organization [facility] Address [address] [place] [address] Phone Care Team Providers Care Over [employer] Targeting Supervisor Name Role Phone Unavailable Primary Care Provider Unavailabl e Allergies No known active allergies Medications amLODIPine (NORVASC) 5 mg tablet Take 5 mg by mouth. 07/31/2019 Active Vyvanse 70 mg capsule TAKE 1 TABLET BY MOUTH EVERY MORNING 03/21/2020 Active sertraline (ZOLOFT) 100 mg tablet 04/17/2016 Active zolpidem (AMBIEN) 10 mg tablet 03/23/2016 Active clonazePAM (KlonoPIN) 1 mg tablet TAKE 1 TABLET BY MOUTH EVERY MORNING AND AT 6PM 03/28/2020 Active Eliquis 5 mg tablet TAKE 1 TABLET BY MOUTH TWICE A DAY 01/28/2020 Active valACYclovir (VALTREX) 500 mg tablet Take 500 mg by mouth. 06/14/2016 Active Active Problems Patient Care Coordination No te Formatting of this note migh t be different from the original. Primary Care: No primary care provider on file. Referring Provider: Kandy Zapata MD [address] [facility] [address] [address] Other: Dr. Rosalba Magana Problem Noted Date Diagnosed Date Breast lump 04/25/2020 Family History Medical History Relation Name Comments Pancreatic Cancer Maternal Grandmother Lung Cancer Paternal Grandfather Breast Cancer Neg Hx Cancer Neg Hx Ovarian Cancer Neg Hx Relation Name Status Comments Maternal Grandmother Paternal Grandfather Social History Tobacco Use Types Packs/Day Years Used Date Smoking Tobacco: Never Smokeless Tobacco: Never Alcohol Use Standard Drinks/Week Comments Yes 0 (1 standard drink = 0.6 oz pur e alcohol) moderately Comments No Sex and Gender Information Value Date Recorded Sex Assigned at Not on file Legal Sex Female 10:00 AM CDT Gender Identity Not on file Sexual Orientation Not on file Occupation Industry Job Start Date Job End Date [employer] Not on file Not on file Not on file Last Filed Vital Signs Vital Sign Reading Time Taken Comments Blood Pressure 128/80 05/10/2020 11:34 AM CDT Pulse - - Temperature - - Respiratory Rate - - Oxygen Saturation - - Inhaled Oxygen Concentration - - Weight 187.2 kg (412 lb 12.8 oz) 2019 11:34 AM CDT Height 167.6 cm (5' 6) 05/10/2020 11:3 4 AM CDT Body Mass Index 66.63 05/10/2020 11:34 AM CDT Plan of Treatment Health Maintenance Due Date Last Done Comments DTAP/TDAP/TD VACCINES (1 - Tdap) 2001 HEPATITIS B VACCINES (1 of 3 - 19+ 3-dose series) 10/2000 HPV/Cotest (21-29) 2003 HPV VACCINES (1 - 3-dose SCDM series) 2009 CERVICAL CANCER SCREENING 2012 HPV/Cotest (30-65) 2012 PAP SMEAR 2012 BREAST CANCER SCREENING 2022 04/28/2020 INFLUENZA VACCINE (#1) 2025 06/23/2015 Procedures Procedure Name Priority Date/Time Associated Diagnosis Comments MAMMO 3D TREMAYNE DIAGNOSTIC BILAT W OR WO CAD Routine 04/28/2020 3:41 PM CDT Breast lump from Last 3 Months or Most Recently Relevant to Health Maintenance Results * (ABNORMAL) MAMMO DIAG BILAT 3D TREMAYNE W OR WO CAD (04/28/2020 3:41 PM CDT) Anatomical Region Laterality Modality Breast Bilateral Mammography 04/28/2020 3:41 PM CDT Impressions 04/28/2020 6:08 PM CDT IMPRESSION: 1. Given the mammographic and sonographic findings, this is probably benign and represents fat necrosis. However given the patient's erythematous skin, infection cannot be excluded in addition to the likely fat necrosis. The patient was instructed by Dr. Paz to contact her physician if the redness increases, becomes more warm, or if the patient has a fever or other symptoms to be started on antibiotics for cellulitis/mastitis. Follow-up is recommended in one month to document evolution of fat necrosis without new concerning infection with mammogram and ultrasound. The area of palpable concern in the right breast at the 11:00 position should specifically be imaged to ensure evolution as well as the areas of erythema. OVERALL FINAL ASSESSMENT: BI-RADS Category 3: Probably Benign. Recommend follow-up diagnostic breast imaging in one month. DICTATION LOCATION: [facility] Narrative 04/28/2020 6:08 PM CDT EXAMINATION: BILATERAL DIGITAL DIAGNOSTIC MAMMOGRAM INCLUDING CAD AND BILATERAL DIGITAL BREAST TOMOSYNTHESIS; BILATERAL BREAST SONOGRAM LIMITED DATE: 04/28/2020 3:41 PM HISTORY: 39-year-old who presented without a history of trauma with a palpable abnormality in the right breast and redness of both breasts superiorly. The patient reports there was initially bruising prior to the redness. The bruising started on the right breast followed by the left breast. The patient denies fevers. COMPARISON: 10/08/2018 TECHNIQUE: Full field digital mammographic views of BOTH breasts were performed, including computer aided detection (CAD) and BILATERAL digital breast tomosynthesis (DBT). Directed ultrasound evaluation of BOTH breasts was performed by a trained systems integration engineer and Dr. Paz BREAST PARENCHYMAL COMPOSITION: The breasts are almost entirely fatty. MAMMOGRAM FINDINGS: In the superior lateral right breast at anterior depth there is edema and an asymmetry consistent with inflammation. This is new compared to prior mammogram. There is no suspicious masses or calcifications. In the superior lateral left breast there is new focal asymmetry and edema consistent with inflammation. SONOGRAM FINDINGS: Targeted sonogram was performed in the patient's area of palpable concern as well as the bilateral erythematous regions superiorly from approximately 11-1:00 on the right and 1-2:00 on the left when the patient is supine. In the right breast in the area of palpable concern there is a hypoechoic 0.9 x 0.2 x 0.3 parallel irregularly shaped mass with indistinct margins that is favored to represent fat necrosis given other similar appearing masses in the region of erythema. Multiple oil cysts are also present. There are also multiple hyperechoic masses as well. In the left breast area of concern there are multiple hyperechoic masses as well as small oil cysts in the area of inflammation. Procedure Note Sabra Paz MD - 04/28/2020 EXAMINATION: BILATERAL DIGITAL DIAGNOSTIC MAMMOGRAM INCLUDING CAD AND BILATERAL DIGITAL BREAST TOMOSYNTHESIS; BILATERAL BREAST SONOGRAM LIMITED DATE: 04/28/2020 3:41 PM HISTORY: 39-year-old who presented without a history of trauma with a palpable abnormality in the right breast and redness of both breasts superiorly. The patient reports there was initially bruising prior to the redness. The bruising started on the right breast followed by the left breast. The patient denies fevers. COMPARISON: 10/08/2018 TECHNIQUE: Full field digital mammographic views of BOTH breasts were performed, including computer aided detection (CAD) and BILATERAL digital breast tomosynthesis (DBT). Directed ultrasound evaluation of BOTH breasts was performed by a trained systems integration engineer and Dr. Paz BREAST PARENCHYMAL COMPOSITION: The breasts are almost entirely fatty. MAMMOGRAM FINDINGS: In the superior lateral right breast at anterior depth there is edema and an asymmetry consistent with inflammation. This is new compared to prior mammogram. There is no suspicious masses or calcifications. In the superior lateral left breast there is new focal asymmetry and edema consistent with inflammation. SONOGRAM FINDINGS: Targeted sonogram was performed in the patient's area of palpable concern as well as the bilateral erythematous regions superiorly from approximately 11-1:00 on the right and 1-2:00 on the left when the patient is supine. In the right breast in the area of palpable concern there is a hypoechoic 0.9 x 0.2 x 0.3 parallel irregularly shaped mass with indistinct margins that is favored to represent fat necrosis given other similar appearing masses in the region of erythema. Multiple oil cysts are also present. There are also multiple hyperechoic masses as well. In the left breast area of concern there are multiple hyperechoic masses as well as small oil cysts in the area of inflammation. IMPRESSION: 1. Given the mammographic and sonographic findings, this is probably benign and represents fat necrosis. However given the patient's erythematous skin, infection cannot be excluded in addition to the likely fat necrosis. The patient was instructed by Dr. Paz to contact her physician if the redness increases, becomes more warm, or if the patient has a fever or other symptoms to be started on antibiotics for cellulitis/mastitis. Follow-up is recommended in one month to document evolution of fat necrosis without new concerning infection with mammogram and ultrasound. The area of palpable concern in the right breast at the 11:00 position should specifically be imaged to ensure evolution as well as the areas of erythema. OVERALL FINAL ASSESSMENT: BI-RADS Category 3: Probably Benign. Recommend follow-up diagnostic breast imaging in one month. DICTATION LOCATION: [facility] Kandy Zapata MD MAMMO ORDERABLES Final Result from Last 3 Months or Most Recently Relevant to Health Maintenance Insurance [employer] CHO[employer] POS II
--- OUTSIDE RECORDS SUMMARY | 2025-06-23 02:16 | XMS_ITS | Clinical Summary ---
Author Organization [facility] Address [address] [place] [address] Care Team Providers Care Business Specialist Name Role Phone Unavailable Primary Care Provider Unavailabl e Social History Tobacco Use Types Packs/Day Years Used Date Smoking Tobacco: Never Assessed Comments Unknown Sex and Gender Information Value Date Recorded Sex Assigned at Not on file Legal Sex Female 5:33 PM CDT Gender Identity Not on file Sexual Orientation Not on file Plan of Treatment Health Maintenance Due Date Last Done Comments Cervical Cancer Screening Pap Smear (Age 30 to 64) Every 3 Years 1982 Annual Physical 1985 Hepatitis C 2000 DTaP, Tdap and Td Vaccines (1 - Tdap) 2001 Hepatitis B Vaccines (1 of 3 - 19+ 3-dose series) 2001 HPV Vaccines (1 - 3-dose SCDM series) 2009 Cervical Cancer Screening Pap with HPV Testing (Age 30 to 64) Every 5 Years 2012 Cervical Cancer Screening with HPV 2012 Mammogram Screening 2022 COVID-19 Vaccine ( season) 2025 08/22/2023, 08/15/2022, 09/05/2021, Additional history exists Influenza Adult (#1) 2025 10/01/2023, 08/15/2022, 07/26/2020, Additional history exists Meningococcal B Vaccine Aged Out No l onger eligible based on patient's age to complete this topic Meningococcal Vaccine Aged Out No brett gema eligible based on patient's age to complete this topic Pneumococcal Vaccine: Pediatrics (0 to 5 Years) and At-Risk Patients (6 to 49 Years) Aged Out No longer eligible based on patient's age to complete this topic RSV Immunizations Under 20 Months Aged Out No longer eligible based on patient's age to complete this topic
--- OUTSIDE RECORDS SUMMARY | 2025-06-23 02:16 | XMS_ITS | Clinical Summary ---
Author Organization [facility] Address [address] [place] [address] Care Team Providers Care Director Veterinary Name Role Phone Unavailable Primary Care Provider Unavailabl e Source Comments [facility],non-owned Affiliates and Associated Physician Practices is amultiple site organization consisting of ambulatory clinics and hospital sitesin [place], [place], [place] and [place]. This disclosure is being madepursuant to the Care Everywhere program and may not contain all information available regarding this patient. Last updated 18.[facility] [place] Allergies Active Allergy Reactions Criticality Noted Date Comments Trazodone Other Low 06/14/2016 tachycardia Medications * Be aware that medications may not be up to date on this document. Alwaysverify current medications with the patient. clonazePAM (KLONOPIN) 1 MG tablet 0 05/19/2016 Active zolpidem (AMBIEN) 10 MG tablet 0 05/19/2016 Active lisdexamfetamine (VYVANSE) 70 MG capsule 0 05/19/2016 Active sertraline (ZOLOFT) 100 MG tablet 0 04/17/2016 Active valACYclovir (VALTREX) 500 MG tablet Take 500 mg by mouth. 06/14/2016 Active apixaban (ELIQUIS) 5 MG tablet Take 1 tablet by mouth 2 times daily 180 tablet 3 07/31/2019 Active amLODIPine (NORVASC) 5 MG tablet TAKE 1 TABLET BY MOUTH EVERY DAY 90 tablet 4 07/22/2020 Active Family History Medical History Relation Name Comments COPD - Chronic Obstructive Pulmonary Disease Father CVA Father Gout Father Hemophilia Sister blot clot in ey e? Relation Name Status Comments Father Sister Social History Tobacco Use Types Packs/Day Years Used Date Smoking Tobacco: Never Smokeless Tobacco: Never Alcohol Use Standard Drinks/Week Comments Yes 0 (1 standard drink = 0.6 oz pur e alcohol) Comments Unknown Sex and Gender Information Value Date Recorded Sex Assigned at Not on file Legal Sex Female 5:52 PM [employer] Gender Identity Not on file Sexual Orientation Not on file Last Filed Vital Signs Vital Sign Reading Time Taken Comments Blood Pressure 132/86 08/14/2019 3:14 PM [employer] Pulse 72 08/14/2019 3:14 PM [employer] Temperature 36.8 C (98.3 F) 06/14/2016 9:04 AM CDT Respiratory Rate 12 08/14/2019 3:14 PM [employer] Oxygen Saturation - - Inhaled Oxygen Concentration - - Weight 181.1 kg (399 lb 3.2 oz) 08/14/2019 3:14 PM [employer] Height 167.6 cm (5' 6) 08/14/2019 3:14 PM [employer] Body Mass Index 64.43 08/14/2019 3:14 PM [employer] Plan of Treatment Health Maintenance Due Date Last Done Comments LIPID TESTING 1982 MAMMOGRAM 1982 HIV SCREENING 1997 HEPATITIS C SCREENING 06/19/2000 DTAP/TDAP/TD VACCINES (1 - Tdap) 2001 HEPATITIS B VACCINE (1 of 3 - 19+ 3-dose series) 2001 HPV VACCINE (1 - 3-dose SCDM series) 2009 DEPRESSION SCREENING 09/23/2024 COVID-19 VACCINE (1 - 2023-2 5 season) 2025 INFLUENZA VACCINE (#1) 2025 06/23/2015 ZOSTER VACCINE (1 of 2) 2032 HIB VACCINE Aged Out No longer eligi ble based on patient's age to complete this topic MENINGOCOCCAL (Group B) VACC INE SHARED DECISION-MAKING Aged Out No longer eligibl e based on patient's age to complete this topic MENINGOCOCCAL GROUPS A/C/Y/W VACCINE Aged Out No longer eligible b ased on patient's age to complete this topic PNEUMOCOCCAL VACCINE Aged Out No long er eligible based on patient's age to complete this topic Insurance [employer]
== END 2025-06-23 02:43 | disposition home or self-care (01) ==
PROVIDERS: Emergency Provider Physician Assistant; PCP Nurse Practitioner Adult Health
DX: K08.89 Other specified disorders of teeth and supporting structures (principal); E66.01 Morbid (severe) obesity due to excess calories; Z68.43 Body mass index [BMI] 50.0-59.9, adult; F90.9 Attention-deficit hyperactivity disorder, unspecified type; F41.9 Anxiety disorder, unspecified; F32.A Depression, unspecified; Z86.711 Personal history of pulmonary embolism; Z79.01 Long term (current) use of anticoagulants; Z79.899 Other long term (current) drug therapy
CPT/HCPCS: 99283; A9270